=== PATIENT | male | born 1990 | race African-American/Black ===

== ENCOUNTER 2023-10-09 00:29 | Emergency (ER) | payer SELFPAY ==
[~2023-10-09] VITALS: Ht 175.3 cm; Wt 100.0 kg
[2023-10-09 00:50] VITALS: BP 156/115; PULSE 95; RESP 18; TEMP 98.4; O2SAT 98
[2023-10-09 01:28] LABS: BASOPHILS % 1.8 % (0.0-2.0); EOSINOPHILS % 5.6 % (0.0-5.0); HEMOGLOBIN. 15.1 g/dL (14.0-18.0); LYMPHOCYTES % 28.6 % (20.0-50.0); MEAN CORPUSCULAR HEMOGLOBIN 28.1 pg (28.0-32.0); MEAN CORPUSCULAR HGB CONC 33.5 g/dL (31.0-37.0); MEAN PLATELET VOLUME 7.9 fl (7.4-10.4); MONOCYTES % 7.5 % (2.0-8.0); NEUTROPHILS % 56.5 % (40.0-76.0); PLATELET 178 x1000/uL (130-400); RED BLOOD CELL COUNT 5.36 mill/uL (4.7-6.1); RED CELL DISTRIBUTION WIDTH 13.7 % (11.6-14.6)
[2023-10-09 01:47] LABS: ALANINE AMINOTRANSFERASE 20 IU/L (10-49); ALBUMIN 4.3 g/dL (3.2-4.8); ASPARTATE AMINOTRANSFERASE 23 IU/L (<34); BILIRUBIN TOTAL 0.4 mg/dL (0.1-1.0); CARBON DIOXIDE 24 mEq/L (21-32); CHLORIDE 110 mEq/L (98-107); CREATININE 1.1 mg/dL (0.6-1.3); GLUCOSE 96 mg/dL (70-105); POTASSIUM 3.7 mEq/L (3.5-5.1); PROTEIN TOTAL 7.4 g/dL (6.0-8.3); SODIUM 142 mEq/L (136-145); UREA NITROGEN BLOOD 10 mg/dL (9-23)
[2023-10-09] MEDS ORDERED: MED4 MT (03:00)
[2023-10-09] MEDS ORDERED: D-ME473S50 PO (03:00)
[2023-10-09] MEDS ORDERED: ALBU18HF2 IH (03:00)
== END 2023-10-09 03:20 | disposition home or self-care (01) ==
LOC: ER 00:47
DX: R05.9 Cough, unspecified (principal); Z98.890 Other specified postprocedural states
CPT/HCPCS: 36415; 71046; 80053; 83880; 85025; 87070; 87430; 99284